=== PATIENT | female | born 1995 | race African-American/Black ===

== ENCOUNTER 2017-02-01 11:45 | Emergency (ER) | payer OTHER ==
[~2017-02-01] VITALS: Ht 162.6 cm; Wt 72.6 kg
[~2017-02-01 11:45] MED LIST: CEPH-264 PO; METO10TA81 PO
--- NOTE | 2017-02-01 12:12 | PHYS DOC ---
Past Medical History Past Medical History: No Pertinent History Past Surgical History: No Surgical History Alcohol Use: None Drug Use: None Adult General Chief Complaint Chief Complaint: EYE PROBLEMS HPI HPI Patient is a 21 year old female who presents with I itching. She states it started just this morning. She denies any blurry vision, headache , eye pain she says it just itches and it feels swollen. She states she seen fine. She does have cold-like symptoms over the last several days. She denies any contact with anybody else who has similar problems. Review of Systems Review of Systems Constitutional: Denies fever or chills [] Eyes: Denies change in visual acuity, redness, or eye pain [] HENT: Denies nasal congestion or sore throat [] Respiratory: Denies cough or shortness of breath [] Cardiovascular: No additional information not addressed in HPI [] GI: Denies abdominal pain, nausea, vomiting, bloody stools or diarrhea [] : Denies dysuria or hematuria [] Musculoskeletal: Denies back pain or joint pain [] Integument: Denies rash or skin lesions [] Neurologic: Denies headache, focal weakness or sensory changes [] Endocrine: Denies polyuria or polydipsia [] Allergies Allergies Allergies Coded Allergies Type Severity Reaction Last Updated Verified No Known Drug Allergies 12/02/13 No Physical Exam Physical Exam Constitutional: Well developed, well nourished, no acute distress, non-toxic appearance. [] HENT: Normocephalic, atraumatic, bilateral external ears normal, oropharynx moist, no oral exudates, nose normal. [] Eyes: PERRLA, EOMI, conjunctiva mild erythema, no discharge. [] Neck: Normal range of motion, no tenderness, supple, no stridor. [] Cardiovascular:Heart rate regular rhythm, no murmur [] Lungs & Thorax: Bilateral breath sounds clear to auscultation [] Abdomen: Bowel sounds normal, soft, no tenderness, no masses, no pulsatile masses. [] Skin: Warm, dry, no erythema, no rash. [] Back: No tenderness, no CVA tenderness. [] Extremities: No tenderness, no cyanosis, no clubbing, ROM intact, no edema. [] Neurologic: Alert and oriented X 3, normal motor function, normal sensory function, no focal deficits noted. [] Psychologic: Affect normal, judgement normal, mood normal. [] Current Patient Data Vital Signs Vital Signs Date Time Temp Pulse Resp B/P (MAP) Pulse Ox O2 Delivery O2 Flow Rate FiO2 02/01/17 12:14 99.1 100 18 99 Room Air 99.1 EKG EKG [] Radiology/Procedures Radiology/Procedures [] Impressions: Allergic conjunctivitis Course & Med Decision Making Course & Med Decision Making Pertinent Labs and Imaging studies reviewed. (See chart for details) Visual acuity is nonacute. We'll discharge with tobramycin 1-2 drops or 4 hours the next 4-5 days. She is to follow-up with the [employer] [facility] ears are symptoms get worse or persists. Return precautions given for fevers, decreased vision, pain or other concerns. Dragon Disclaimer Dragon Disclaimer This electronic medical record was generated, in whole or in part, using a voice recognition dictation system. Departure Departure Impression: Primary Impression: Allergic conjunctivitis Disposition: HOME, SELF-CARE Condition: STABLE Referrals: NON,STAFF (PCP) Patient Instructions: Allergic Conjunctivitis Additional Instructions: You likely have allergic conjunctiva secondary to a virus that you picked up. You can use eyedrops as directed for the next 3-4 days. She started having trouble seeing, developed a headache, fevers, eye pain or other concerns please return back to emergency department for further evaluation. He should follow up with her eye doctor within the next 3-4 days. Scripts Tobramycin/Dexamethasone (TOBRADEX EYE DROPS) 5 Ml Drops.susp 1 DROP OD QID, #5 ML Prov: LEONARD ORTIZ MD 02/01/17 Problem Qualifiers Primary Impression: Allergic conjunctivitis Laterality: right Qualified Codes: H10.11 - Acute atopic conjunctivitis, right eye LEONARD ORTIZ MD February 01, 2017 12:12
[2017-02-01 12:14] VITALS: BP 145/83
[2017-02-01] MEDS ORDERED: TOBR5DRO2 OD (12:57)
== END 2017-02-01 13:05 | disposition home or self-care (01) ==
LOC: ER 11:45
DX: H10.11 Acute atopic conjunctivitis, right eye (principal)
CPT/HCPCS: 99283